=== PATIENT | male | born 1940 | race Caucasian/White ===

== ENCOUNTER 2022-10-13 09:43 | Inpatient (IN) | payer OTHER ==
[~2022-10-13] VITALS: Ht 152.4 cm; Wt 81.6 kg
[2022-10-25] MEDS ORDERED: LIPITOR40 MG PO (11:31)
[2022-10-25] MEDS ORDERED: AMLODIPINE BESY10 MG PO (11:31)
[2022-10-25] MEDS ORDERED: RAYOS5 MG PO (11:31)
[2022-10-25] MEDS ORDERED: IPRAT-ALBUT 0.5-3 ML IH (11:31)
[2022-10-25] MEDS ORDERED: IRON325 MG PO (11:31)
[2022-10-25] MEDS ORDERED: TOPROL XL50 M1 PO (11:31)
[2022-10-25] MEDS ORDERED: COZAAR50 MG PO (11:31)
== END 2022-10-25 14:15 | disposition home or self-care (01) | DRG 291 ==
LOC: ER 09:43 → ICU-2 20:37 → ICU 10-17 02:47 → MEDJ 10-20 17:00
PROVIDERS: ADMIT Internal Medicine; ATTEND Internal Medicine
PROC: 30233N1 Transfusion of Nonautologous Red Blood Cells into Peripheral Vein, Percutaneous Approach (ICD-10-PCS; 2022-10-13)
PROC: B24BZZZ Ultrasonography of Heart with Aorta (ICD-10-PCS; 2022-10-13)
PROC: BW28ZZZ Computerized Tomography (CT Scan) of Head (ICD-10-PCS; 2022-10-13)
PROC: 5A09457 Assistance with Respiratory Ventilation, 24-96 Consecutive Hours, Continuous Positive Airway Pressure (ICD-10-PCS; principal; 2022-10-18)
PROC: 02HV33Z Insertion of Infusion Device into Superior Vena Cava, Percutaneous Approach (ICD-10-PCS; 2022-10-19)
PROC: 4A12X4Z Monitoring of Cardiac Electrical Activity, External Approach (ICD-10-PCS; 2022-10-20)
DX: I13.0 Hypertensive heart and chronic kidney disease with heart failure and stage 1 through stage 4 chronic kidney disease, or unspecified chronic kidney disease (principal); J96.01 Acute respiratory failure with hypoxia; J96.02 Acute respiratory failure with hypercapnia; E87.29 Other acidosis; N17.8 Other acute kidney failure; J44.1 Chronic obstructive pulmonary disease with (acute) exacerbation; D64.9 Anemia, unspecified; E86.0 Dehydration; D51.3 Other dietary vitamin B12 deficiency anemia; E87.8 Other disorders of electrolyte and fluid balance, not elsewhere classified; I50.9 Heart failure, unspecified; N18.9 Chronic kidney disease, unspecified; Z74.01 Bed confinement status; R41.82 Altered mental status, unspecified